=== PATIENT | male | born 1970 | race Caucasian/White ===

== ENCOUNTER 2016-09-06 04:35 | Emergency (ER) | payer BC, OTHER ==
[2016-09-06] MEDS ORDERED: NS 0.9% 1000 ML* 1,000 ML IV ONE (04:56)
[2016-09-06] MEDS ORDERED: Acetaminophen TAB* 325 MG PO ONE (04:59)
--- NOTE | 2016-09-06 05:00 | ED ---
Madhu Sarah Rebecca, scribed for Roosevelt Perry MD on 09/06/16 at 0455 . Skin Complaint - HPI Summary HPI Summary: Pt is a 45 y/o M who presents to ED c/o circular, erythematous rash on the back. Reports a bug bite in that region, though he is unsure of what type of bug. Additionally c/o JAQUEZ, myalgias, fever and feeling really "lousy." Sx began 3 days ago and have been intermittent since onset. Myalgias are currently moderate, ranked 5/10. Female visitor reports that his temperature was about 104 [employer]. Sx aggravated by nothing, alleviated by Excedrin. - History of Current Complaint Chief Complaint: EDRashSkinAbscess Time Seen by Provider: 09/06/16 04:52 Stated Complaint: FEVER/HEADACHE/RASH ON BACK Hx Obtained From: Patient Onset/Duration: Started Days Ago - 3 days ago, Still Present Timing: Intermittent Current Severity: Moderate Pain Intensity: 5 Pain Scale Used: 0-10 Numeric Skin Location: Other: - Back Character: Redness Aggravating Symptom(s): Nothing Alleviating Symptom(s): OTC Meds - Excedrin Associated Signs & Symptoms: Fever - 104 [employer] - Allergy/Home Medications Allergies/Adverse Reactions: Allergies Allergy/AdvReac Type Severity Reaction Status Date / Time No Known Allergies Allergy Verified 09/06/16 04:52 PMH/Surg Hx/FS Hx/Imm Hx Previously Healthy: Yes Endocrine/Hematology History: Denies: Hx Diabetes Cardiovascular History: Denies: Hx Coronary Artery Disease Infectious Disease History: No Infectious Disease History: Denies: Traveled Outside the [place] in Last 30 Days - Family History Known Family History: Negative: Hypertension - Social History Alcohol Use: Occasionally Substance Use Type: Reports: None Smoking Status (MU): Never Smoked Tobacco Review of Systems Positive: Fever, Other - feeling "lousy" Positive: Myalgia Positive: Rash - Erythematous, circular rash on the back Positive: Headache All Other Systems Reviewed And Are Negative: Yes Physical Exam Triage Information Reviewed: Yes Vital Signs On Initial Exam: Initial Vitals Temp Pulse Resp Pulse Ox 99.1 F 88 16 96 09/06/16 04:44 09/06/16 04:44 09/06/16 04:44 09/06/16 04:44 Vital Signs Reviewed: Yes Appearance: Positive: Well-Appearing, No Pain Distress Skin: Positive: Warm, Other - round erythematous macular rash mid back Head/Face: Positive: Normal Head/Face Inspection Eyes: Positive: EOMI, ZACARIAS ENT: Positive: Hearing grossly normal Neck: Positive: Supple, Nontender Respiratory/Lung Sounds: Positive: Clear to Auscultation, Breath Sounds Present Cardiovascular: Positive: RRR Abdomen Description: Positive: Nontender, Soft Bowel Sounds: Positive: Present Musculoskeletal: Positive: Strength/ROM Intact Neurological: Positive: Sensory/Motor Intact, Alert, Oriented to Person Place, Time, Normal Gait Psychiatric: Positive: Affect/Mood Appropriate Diagnostics - Vital Signs Vital Signs Temp Pulse Resp BP Pulse Ox 09/06/16 04:51 87 96 09/06/16 04:49 99.1 F 86 16 133/72 96 09/06/16 04:44 99.1 F 88 16 96 - Laboratory Result Diagrams: 09/06/16 05:15 09/06/16 05:15 Lab Statement: Any lab studies that have been ordered have been reviewed, and results considered in the medical decision making process. Re-Evaluation - Re-Evaluation First Eval Re-Evaluation Time: 06:23 Change: Improved Comment: Discussed lab results and D/C plan. Course/Dx - Course Assessment/Plan: Pt is a 45 y/o M who presents to ED c/o circular, erythematous rash on the back. Reports a bug bite in that region, though he is unsure of what type of bug. Additionally c/o JAQUEZ, myalgias (ranked 5/10), fever (104 [employer]) and feeling really "lousy." Sx began 3 days ago and have been intermittent since onset. Sx alleviated by Excedrin. He will be D/C to home with Dx of Lyme Disease and an Rx for Doxycycline. He understands and agrees. - Diagnoses Provider Diagnoses: Lyme disease Discharge - Discharge Plan Condition: Stable Disposition: HOME Prescriptions: DOXYcycline CAP(*) [DOXYcycline 100MG CAP(*)] 100 mg PO BID #30 cap Patient Education Materials: Lyme Disease (ED) Referrals: Lucas Elliott [Primary Care Provider] - 3 Days The documentation as recorded by the Madhu joel Rebecca accurately reflects the service I personally performed and the decisions made by me, Roosevelt Perry MD.
[2016-09-06 05:33] LABS: Hematocrit 40 % (42-52); Hemoglobin 13.7 g/dl (14.0-18.0); Mean Corpuscular HGB Conc 34 g/dl (31-36); Mean Corpuscular Hemoglobin 33 pg (27-31); Mean Corpuscular Volume 97 fL (80-94); Mean Platelet Volume 7 um3 (7.4-10.4); Red Blood Count 4.12 10^6/ul (4.0-5.4); Red Cell Distribution Width 15 % (10.5-15); White Blood Count 4.8 10^3/ul (3.5-10.8)
[2016-09-06 05:44] LABS: Urine Bilirubin Negative (Negative); Urine Glucose Negative (Negative); Urine Nitrite Negative (Negative)
[2016-09-06 05:47] LABS: BUN/Creatinine Ratio 20.2 (8-20); Calcium 8.7 mg/dL (8.6-10.3); EGFR African American 110.6 (>60); Globulin 2.7 g/dL (2-4); Magnesium 1.8 mg/dL (1.9-2.7); Total Bilirubin 0.6 mg/dL (0.2-1.0); Total Protein 6.7 g/dL (6.4-8.9)
[2016-09-06] MEDS ORDERED: DOXYcycline CAP(*) 100 MG PO ONE (06:29)
[2016-09-06 07:26] VITALS: BP 121/64
== END 2016-09-06 07:24 | disposition home or self-care (01) ==
LOC: ED 04:35
DX: A69.20 Lyme disease, unspecified (principal)
CPT/HCPCS: 36415; 80053; 81003; 83605; 83735; 85025; 86618; 96360; 99282; A9270-GY